=== PATIENT | male | born 1995 | race Caucasian/White ===

== ENCOUNTER 2021-12-14 18:32 | Emergency (ER) | payer SELFPAY ==
[~2021-12-14] VITALS: Ht 180.3 cm; Wt 136.1 kg
[2021-12-14 19:10] VITALS: BP 130/80
--- NOTE | 2021-12-14 19:13 | NUR ---
TO LOBBY A/W BED AMBULATORY
--- NOTE | 2021-12-14 19:55 | NUR ---
SEEN AND EXAMINED BY PA
[2021-12-14 19:56] VITALS: BP 130/80
--- NOTE | 2021-12-14 20:33 | NUR ---
Patient discharged with v/s stable. Written and verbal after care instructions given. Patient verbalized understanding. Ambulatory with steady gait. Advised to follow up with PMD. WORK NOTE HANDED TO PATIENT.
== END 2021-12-14 20:33 | disposition home or self-care (01) ==
LOC: MED 18:32
DX: K60.2 Anal fissure, unspecified (principal)
CPT/HCPCS: 99281

== ENCOUNTER 2021-12-17 07:28 | Emergency (ER) | payer SELFPAY ==
[~2021-12-17] VITALS: Ht 180.3 cm; Wt 143.8 kg
[2021-12-17 07:32] VITALS: BP 120/80
--- NOTE | 2021-12-17 07:37 | NUR ---
26 Y/O MALE BIB SELF C/O OF 510 LEFT LOWER ABD PAIN DESCRIBED "PRESSURE" TODAY AND BRIGHT RED BLOOD WHEN WIPING X1 WEEK. STATED THAT HE WAS DIAGNOSED WITH HEMORRHOIDS AND HAVE USED THE HEMORRHOID CREAMX YESTERDAY. PATIENT DENIES N/V/D, PADRON/FEVERS. STATES THAT HIS FATHER WAS DIAGNOSED WITH STOMACH CANCER JUST A FEW WEEKS AGO AND IS NOW CONCERNED ABOUT HIS SYMPTOMS. NKA PMH: DENIES
--- NOTE | 2021-12-17 07:37 | NUR ---
PT AMBULATED TO BATHROOM WITH STEADY GAIT
--- NOTE | 2021-12-17 07:45 | NUR ---
DR ANNE AT BEDSIDE FOR FURTHER EVAL
--- NOTE | 2021-12-17 07:52 | NUR ---
LAB AT BEDSIDE
--- NOTE | 2021-12-17 07:59 | NUR ---
PT TAKEN TO CT AILIN DEAL
[2021-12-17 08:04] LABS: BASOPHILS # (AUTO) 0.1 K/uL (0.00-0.22); EOSINOPHILS # (AUTO) 0.1 K/uL (0-0.4); EOSINOPHILS % (AUTO) 1.1 % (0.0-4.0); HEMATOCRIT 44.5 % (36-52); HEMOGLOBIN 15.4 g/dL (12.0-18.0); LYMPHOCYTES # (AUTO) 2.8 K/uL (2.0-11.5); LYMPHOCYTES % (AUTO) 27.3 % (20.5-51.1); MEAN CORPUSCULAR HEMOGLOBIN 30 pg (27-31); MEAN CORPUSCULAR HGB CONC 35 g/dL (33-37); MEAN CORPUSCULAR VOLUME 85.8 fL (80-94); MONOCYTES # (AUTO) 0.8 K/uL (0.8-1.0); MONOCYTES % (AUTO) 7.5 % (1.7-9.3); NEUTROPHILS # (AUTO) 6.5 K/uL (1.8-7.7); NEUTROPHILS % (AUTO) 63.1 % (42.2-75.2); PLATELET COUNT (AUTO) 246 K/uL (140-450); RED BLOOD CELL COUNT(AUTO) 5.18 MIL/uL (4.20-6.10); RED CELL DISTRIBUTION WIDTH 13.5 % (11.6-13.7); WHITE BLOOD COUNT (AUTO) 10.3 K/uL (4.8-10.8)
[2021-12-17 08:18] LABS: APPEARANCE,URINE CLEAR (CLEAR); BILIRUBIN,URINE NEGATIVE (NEGATIVE); BLOOD, URINE NEGATIVE (NEGATIVE); COLOR,URINE YELLOW (YELLOW); LEUKOCYTE ESTERASE ,URINE NEGATIVE (NEGATIVE); NITRITE, URINE NEGATIVE (NEGATIVE); UGLUCOSE NEGATIVE (NEGATIVE)
[2021-12-17] MEDS ORDERED: BEN10 PO (08:21)
[2021-12-17 08:32] LABS: ALBUMIN 4.1 g/dL (3.4-5.0); ANION GAP 10.2 (8-16); CARBON DIOXIDE 27.3 mmol/L (21-32); CREATININE 0.9 mg/dL (0.6-1.3); POTASSIUM 3.5 mmol/L (3.5-5.1); TOTAL BILIRUBIN 0.6 mg/dL (0.0-1.0)
--- NOTE | 2021-12-17 09:05 | NUR ---
Patient discharged with v/s stable. Written and verbal after care instructions given and explained. Patient alert, oriented and verbalized understanding of instructions. Ambulatory with steady gait. All questions addressed prior to discharge. ID band removed. Patient advised to follow up with PMD. Rx of BENTYL given. Patient educated on indication of medication including possible reaction and side effects. Opportunity to ask questions provided and answered.
== END 2021-12-17 09:05 | disposition home or self-care (01) ==
LOC: MED 07:28
DX: R10.31 Right lower quadrant pain (principal); R10.32 Left lower quadrant pain; F12.90 Cannabis use, unspecified, uncomplicated; Z79.899 Other long term (current) drug therapy
CPT/HCPCS: 36415; 80053; 81003; 83690; 85025; 99284

== ENCOUNTER 2021-12-20 07:44 | Emergency (ER) | payer SELFPAY ==
[~2021-12-20] VITALS: Ht 180.3 cm; Wt 139.7 kg
[~2021-12-20 07:44] MED LIST: BEN10 PO
[2021-12-20 07:56] VITALS: BP 133/79
[2021-12-20] MEDS ORDERED: KETOROLAC 30 MG/ML VIAL IVP ONE (08:25)
[2021-12-20] MEDS ORDERED: ONDANSETRON 4 MG/2 ML VIAL IVP ONE (08:25)
[2021-12-20] MEDS: ONDANSETRON 4 MG ODT PO ONE (08:35)
[2021-12-20] MEDS: KETOROLAC 60 MG/2 ML VIAL IM ONE (08:38)
[2021-12-20 08:46] LABS: APPEARANCE,URINE CLEAR (CLEAR); BILIRUBIN,URINE 1+ (NEGATIVE); BLOOD, URINE NEGATIVE (NEGATIVE); COLOR,URINE DARK YELLOW (YELLOW); LEUKOCYTE ESTERASE ,URINE NEGATIVE (NEGATIVE); NITRITE, URINE NEGATIVE (NEGATIVE); UGLUCOSE NEGATIVE (NEGATIVE)
[2021-12-20 08:50] LABS: BASOPHILS # (AUTO) 0.1 K/uL (0.00-0.22); BASOPHILS % (AUTO) 0.5 % (0.0-2.0); EOSINOPHILS # (AUTO) 0.1 K/uL (0-0.4); EOSINOPHILS % (AUTO) 0.5 % (0.0-4.0); HEMATOCRIT 45.7 % (36-52); HEMOGLOBIN 15.8 g/dL (12.0-18.0); LYMPHOCYTES # (AUTO) 1.6 K/uL (2.0-11.5); LYMPHOCYTES % (AUTO) 14.3 % (20.5-51.1); MEAN CORPUSCULAR HEMOGLOBIN 30 pg (27-31); MEAN CORPUSCULAR HGB CONC 35 g/dL (33-37); MEAN CORPUSCULAR VOLUME 85.1 fL (80-94); MONOCYTES # (AUTO) 0.7 K/uL (0.8-1.0); MONOCYTES % (AUTO) 6.3 % (1.7-9.3); NEUTROPHILS % (AUTO) 78.4 % (42.2-75.2); PLATELET COUNT (AUTO) 249 K/uL (140-450); RED BLOOD CELL COUNT(AUTO) 5.37 MIL/uL (4.20-6.10); RED CELL DISTRIBUTION WIDTH 13.5 % (11.6-13.7); WHITE BLOOD COUNT (AUTO) 11.5 K/uL (4.8-10.8)
[2021-12-20 09:01] LABS: OTHER CASTS, URINE None Seen /LPF (None Seen); RBC,URINE 0-5 /HPF (0-5); WBC,URINE 0-5 /HPF (0-5)
[2021-12-20 09:04] LABS: ALBUMIN 4.6 g/dL (3.4-5.0); ANION GAP 12.4 (8-16); CARBON DIOXIDE 24.2 mmol/L (21-32); CREATININE 0.9 mg/dL (0.6-1.3); POTASSIUM 3.6 mmol/L (3.5-5.1); TOTAL BILIRUBIN 1.2 mg/dL (0.0-1.0)
[2021-12-20] MEDS ORDERED: IBUP-2213 PO (09:55)
[2021-12-20 10:16] VITALS: BP 128/70
== END 2021-12-20 10:15 | disposition home or self-care (01) ==
LOC: MED 07:44
DX: R10.9 Unspecified abdominal pain (principal); F41.9 Anxiety disorder, unspecified; R11.0 Nausea; R19.7 Diarrhea, unspecified; Z79.899 Other long term (current) drug therapy
CPT/HCPCS: 76705; 80053; 81001; 83690; 85025; 96372; 99284; J1885; Q0092; Q0162; 81002; 81003; J2405